=== PATIENT | female | born 1975 | race Caucasian/White ===

== ENCOUNTER 2024-07-13 02:26 | Emergency (ER) | payer SELFPAY ==
[2024-07-13 02:32] VITALS: BP 210/111; PULSE 117; TEMP 36.7; O2SAT 98; BMI 39.3
--- NOTE | 2024-07-13 02:39 | PC.NURSE ---
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
[2024-07-13] MEDS: PENICILLIN V POTASSIUM 250 MG TABLET 500 MG PO (03:27)
--- NOTE | 2024-07-13 03:32 | ED_ITS ---
HPI - Dental/Oral General Chief complaint: Dental/Oral Stated complaint: TOOTH PAIN Time Seen by Provider: 07/13/24 02:38 Source: patient Mode of arrival: walk-in Limitations: no limitations History of Present Illness HPI Narrative: 48-year-old female to the emergency department chief complaint of dental pain. Patient reports that she has a right lower posterior molar that fractured a few months ago. She was seen by her dentist at that time. They wanted $300 for an extraction which she could not afford so she put it off. She reports that the molar continue to fracture further last night causing her increased pain. She thinks that it is infected again as she has some redness around that tooth and increased pain prior to the fracture. She is requesting antibiotics so she can have the tooth extracted when she goes in a few days. Related Data Previous Rx's ?Medication ?Instructions ?Recorded fluconazole 200 mg tablet 200 mg PO ONCE PRN Yeast infection 07/13/24 (Diflucan) #1 tab penicillin V potassium 500 mg 500 mg PO Q6H 7 days #28 tabs 07/13/24 tablet Allergies Allergy/AdvReac Type Severity Reaction Status Date / Time No Known Drug Allergies Allergy Verified 07/13/24 02:36 Review of Systems ROS Status of ROS 10 or more systems reviewed and unremark able except as noted in history and below PFSH PFSH Social History Little interest or pleasure in doing things: not at all Feeling down, depressed, or hopeless: not at all Exam Narrative Exam Narrative: VITALS: I have reviewed the triage vital signs. GENERAL: Well developed, well appearing adult in no acute distress. NEURO: Alert and oriented. Moves all extremities. Face is symmetric and expressive. EYES: PERRL. No scleral icterus or conjunctival injection. No discharge. HENT: Normocephalic, atraumatic. Hearing is grossly intact. Nares grossly patent and without discharge. Mucous membranes moist. Generally poor dentition. Molar 30 fractured, erythema about the gingiva, no drainable abscess. NECK: No JVD. Patient moves neck without restriction. No edema. No crepitus. SKIN: Warm and dry. Normal turgor. No rash or lesions appreciated. PSYCH: Mood, affect, and interaction is appropriate to the setting. Constitutional Vital Signs, click to edit/add: Last Vital Signs Temp 98.0 F 07/13/24 02:32 Pulse 117 H 07/13/24 02:32 Resp 18 07/13/24 02:32 BP 210/111 H 07/13/24 02:32 Pulse Ox 98 07/13/24 02:32 O2 Del Method Room Air 07/13/24 02:32 Course Vital Signs Vital signs: Vital Signs Temperature 98.0 F 07/13/24 02:32 Pulse Rate 117 H 07/13/24 02:32 Respiratory Rate 18 07/13/24 02:32 Blood Pressure 210/111 H 07/13/24 02:32 Pulse Oximetry 98 07/13/24 02:32 Oxygen Delivery Method Room Air 07/13/24 02:32 Temperature 98.0 F 07/13/24 02:32 Pulse Rate 117 H 07/13/24 02:32 Respiratory Rate 18 07/13/24 02:32 Blood Pressure 210/111 H 07/13/24 02:32 Pulse Oximetry 98 07/13/24 02:32 Oxygen Delivery Method Room Air 07/13/24 02:32 MDM - Dental/Oral MDM Narrative Medical decision making narrative: 48-year-old female to the emergency department chief complaint of fractured and infected tooth. There is no evidence of abscess or further infection. Penic illin. Diflucan for yeast infection as needed. Follow-up with dentist this week. Discuss blood pressure with PCP. Return precautions were discussed. All questions were answered. The patient was discharged home. Discharge Plan Discharge Chief Complaint: Dental/Oral Clinical Impression: Fracture of tooth Patient Disposition: Home, Self-Care Time of Disposition Decision: 03:09 Condition: Good Mode of Transportation: Private Vehicle Prescriptions / Home Meds: New fluconazole [Diflucan] 200 mg tablet 200 mg PO ONCE PRN (Reason: Yeast infection) Qty: 1 0RF penicillin V potassium 500 mg tablet 500 mg PO Q6H 7 Days Qty: 28 0RF Print Language: Czech Instructions: Toothache (ED) Additional Instructions: Call the office of your primary care doctor to arrange for follow-up within the above-stated timeframe. Your ED visit was focused on your acute issue and does not replace primary care. You should review your labs, imaging, and diagnoses from this ED visit with your primary care physician. There may be non-emergent/ incidental findings that need further evaluation. You should review your vital signs including blood pressure with your PCP. If you were prescribed medications you should discuss possible side-effects and drug interactions with your pharmacist. Call 911 or go to the nearest Emergency Department if you develop any new or worsening symptoms. Follow-up with your dentist. Referrals: Physician,Non-Staff, MD [Primary Care Provider] - 1 week
== END 2024-07-13 03:35 | disposition home or self-care (01) ==
PROVIDERS: Emergency Provider Student in an Organized Health Care Education/Training Program
DX: S02.5XXA Fracture of tooth (traumatic), initial encounter for closed fracture (principal)
CPT/HCPCS: 99283